=== PATIENT | female | born 1990 | race Caucasian/White ===

== ENCOUNTER → 2023-09-06 12:56 | Outpatient (REF) | payer BC, SELFPAY | LOC: PNTC 12:56 | PROVIDERS: ATTENDING PHYSICIAN Obstetrics & Gynecology | DX: Z34.82 Encounter for supervision of other normal pregnancy, second trimester (principal) | CPT/HCPCS: 76805 ==

== ENCOUNTER → 2023-10-05 15:54 | Outpatient (REF) | payer BC, SELFPAY | LOC: PNTC 15:54 | PROVIDERS: ATTENDING PHYSICIAN Obstetrics & Gynecology | DX: O44.41 Low lying placenta NOS or without hemorrhage, first trimester (principal) | CPT/HCPCS: 76805; 76817 ==

== ENCOUNTER 2024-01-16 00:24 | Inpatient (IN) | payer BC, SELFPAY ==
[2024-01-16] MEDS: LR 1000 IV (00:45)
[2024-01-16 00:55] VITALS: BP 117/74; BMI 23.7
[2024-01-16] MEDS: SUBLIMAZE 100 MCG EPIDURAL (01:18)
[2024-01-16] MEDS: FENTANYL/BUPIVACAINE 100 EPIDURAL (01:19)
[2024-01-16 01:21] LABS: % Basophils 0.2 % (0-2); % Eosinophils 0.2 % (0-6); % Immature Granulocytes 0.6 % (0-0.5); % Lymphocytes 13.7 % (20.5-51.1); % Monocytes 6.5 % (1.7-9.3); % Neutrophils 78.8 % (42.2-75.2); Absolute Immature Granulocytes 0.1 10^3/uL (0-0.05); Absolute Lymphocytes 1.8 10^3/uL (1.2-3.4); Absolute Monocytes 0.8 10^3/uL (0.1-0.6); Absolute Neutrophils 10.3 10^3/uL (1.4-6.5); Hematocrit 34.1 % (37.0-47.0); Hemoglobin 11.9 g/dL (12.0-16.0); Mean Corp Hgb Conc. 34.9 g/dL (33.0-37.0); Mean Corpuscular Hgb 30.8 pg (27.0-31.0); Mean Corpuscular Volume 88.3 fL (81.0-99.0); Mean Platelet Volume 10.7 fL (7.4-10.4); Nucleated Red Blood Cells % 0 %; Platelet Count 243 10^3/uL (130-400); Red Blood Cell Count 3.86 10^6/uL (4.20-5.40); Red Cell Dist. Width 12.8 % (11.5-14.5)
[2024-01-16] MEDS: SENOKOT-S 1 TABLET PO (07:44)
[2024-01-16] MEDS: PRENATAL PLUS 1 TABLET PO (07:44)
[2024-01-16] MEDS: TYLENOL 650 MG PO (13:22)
[2024-01-17] MEDS: TYLENOL 650 MG PO (00:30)
[2024-01-17] MEDS: MOTRIN 600 MG PO (00:30)
[2024-01-17 05:04] LABS: Hematocrit 30.4 % (37.0-47.0); Hemoglobin 10.5 g/dL (12.0-16.0)
[2024-01-17] MEDS: PRENATAL PLUS 1 TABLET PO (08:23)
[2024-01-17] MEDS: FEOSOL 325 MG PO (08:23)
[2024-01-17 15:12] LABS: Syphilis/T. pallidum Ab Reflex Negative (Negative)
== END 2024-01-17 12:44 | disposition home or self-care (01) | DRG 807 ==
LOC: LDRP 00:24
PROVIDERS: ADMITTING PHYSICIAN Obstetrics & Gynecology; FAMILY PHYSICIAN Nurse Practitioner
PROC: 0HQ9XZZ Repair Perineum Skin, External Approach (ICD-10-PCS; 2024-01-16)
PROC: 10E0XZZ Delivery of Products of Conception, External Approach (ICD-10-PCS; 2024-01-16)
DX: O69.81X0 Labor and delivery complicated by cord around neck, without compression, not applicable or unspecified (principal); Z37.0 Single live birth; O70.0 First degree perineal laceration during delivery; Z3A.40 40 weeks gestation of pregnancy
CPT/HCPCS: 36415; 85014; 85018; 85025; 86780; 86850; 86900; 86901